=== PATIENT | male | born 1965 | race Caucasian/White ===

== ENCOUNTER 2021-10-03 08:01 | Day surgery (SDC) | payer OTHER ==
[~2021-10-03] VITALS: Ht 182.9 cm; Wt 112.4 kg
[~2021-10-03 08:01] MED LIST: LISI20 PO
--- NOTE | 2021-10-03 10:10 | NUR ---
10/03/[address] MLS OF ANKLE COCKTAIL INJECTED IN AT OPSITE BY DR RUST. POPLITEAL BLOCK COMPLETE IN OR BY DR MENJIVAR, PT AWAKE, VSS, TOLERATED WELL.
== END 2021-10-03 12:30 | disposition home or self-care (01) ==
LOC: ORSCSDS 08:01
PROVIDERS: Podiatrist Foot & Ankle Surgery
PROC: 0SGG04Z Fusion of Left Ankle Joint with Internal Fixation Device, Open Approach (ICD-10-PCS; principal; 2021-10-03 09:20)
DX: M19.172 Post-traumatic osteoarthritis, left ankle and foot (principal); I10 Essential (primary) hypertension; Z79.899 Other long term (current) drug therapy; Z87.891 Personal history of nicotine dependence; E66.9 Obesity, unspecified; Z68.33 Body mass index [BMI] 33.0-33.9, adult
CPT/HCPCS: A9270; C1713; J0171; J0690; J0735; J1100; J1885; J2250; J2405; J2704; J2795; J3010; J7120

== ENCOUNTER → 2022-09-29 | Outpatient (CLI) | payer OTHER | END | disposition home or self-care (01) | LOC: LAB SHORT 11:55 → LAB 11:55 | DX: R82.90 Unspecified abnormal findings in urine (principal) | CPT/HCPCS: 87086 ==

== ENCOUNTER → 2025-06-12 | Outpatient (CLI) | payer OTHER | LOC: LAB 07:17 → LAB SHORT 07:17 | DX: D48.5 Neoplasm of uncertain behavior of skin (principal) | CPT/HCPCS: 88312 ==